=== PATIENT | male | born 1970 | race Caucasian/White ===

== ENCOUNTER 2017-04-12 17:22 | Emergency (ER) | payer OTHER ==
[2017-04-12 17:29] VITALS: BP 143/97; BMI 27.3
--- NOTE | 2017-04-12 18:04 | DR.GENAD ---
HPI - PCP [facility] Phys[facility] - HPI Comment HPI Comment: NOTED YESTERDAY AT PHYSICAL THERAPY. NO FEVER. CONCERN IT MAY BE DVT. NO DRAINAGE. - Complaint/Symptoms Chief Complaint Doctors Comments: SWELLING AND REDNESS LEFT LEG ONE WEEK POST KNEE SURGERY. Chief Complaint:: patient had acl repair on his left knee 7 days ago and physical therarpy saw a red gerri on his leg and though it may be a blood clot. - Nurses notes reviewed Nurses Notes Review: Yes - Source History Provided: Patient - Mode of Arrival Mode of Arrival: Ambulatory - Timing Onset of Chief Complaint: 04/11/17 Came on: Suddenly - Duration Duration: Constant Duration: Days - Severity Severity: Moderate PMH - PMH Past Medical History: No Past Medical History: Hypothyroidism Past Surgical History: Yes Surgical History: Ortho Surgery Past Surgical History Comment: sinus - Family History History of Family Medical Conditions: Yes Family Medical History: Hypertension - Social History Does patient currently use any type of tobacco product: No Have you used tobacco products in the last 12 months: No Type of Tobacco Use: None Does any household member use tobacco: No Alcohol Use: Rarely Do you use any recreational Drugs:: No Lives With: Family Lives Where: Home - infectious screening In the last 2 months have you had wt loss of >10#?: NO Have you had fever, night sweats or hemotysis?: No Have you traveled outside the country in the last 6 months?: No Isolation: Standard ROS - Review of Systems Constitutional: No Symptoms Reported Eyes: No Symptoms Reported ENTM: No Symptoms Reported Respiratoy: No Symptoms Reported Cardiovascular: Edema (LEFT KNEE) Gastrointestinal/Abdominal: No Symptoms Reported Genitourinary: No Symptoms Reported Neurological: No Symptoms Reported Musculoskeletal: Joint Swelling, Muscle Pain, Left, Leg, Knee Integumentary: Change in Color, Other (SWELLING AND REDNESS LEFT LEG.) Hematologic/Lymphatic: No Symptoms Reported Endocrine: No Symptoms Reported All Other Systems: Reviewed and Negative PE - Vital Signs Vitals: Temperature 97.9 F Pulse Rate 65 Respiratory Rate 16 Blood Pressure 143/97 O2 Sat by Pulse Oximetry 100 - General Limitations: No Limitations General Appearance: Alert - Head Head Exam: Normal Inspection - Eyes Eye exam: Normal Appearance - ENT ENT Exam: Normal External Ear Exam External Ear Exam: Normal External Inspection TM/Canal Exam: Bilateral Normal Nose Exam: Normal Nose Exam Mouth Exam: Normal Inspection Throat Exam: Normal Inspection - Neck Neck Exam: Trachea Midline - Chest Chest Inspection: Symmetric Chest Wall Rise - Respiratory Respiratory Exam: Normal Lung Sounds Bilat Respiratory Exam: Bilateral Clear to Auscultation - Cardiovascular Cardiovascular Exam: Regular Rate, Normal Rhythm, Normal Heart Sounds - Abdominal Exam Abdominal Exam: Normal Bowel Sounds, Soft. negative: Tenderness - Extremities Extremities Exam: Tenderness (LEFT KNEE AND LEG WITH TENDERNESS.), Joint Swelling (LEFT KNEE/POST SURGERY.) - Back Back Exam: Normal Inspection - Neurologic Neurological Exam: Alert, Oriented X3 - Psychiatric Psychiatric Exam: Normal Affect, Normal Mood - Skin Skin Exam: Erythema MDM - Differential Diagnosis Differential Diagnosis: CELLULITIS LT LEG, DVT LT LEG, POST KNEE SURGERY. Course - Treatment Treatment: SEE ORDERS. - Education/Counseling Education/Counseling: Patient, Education Educated On: Diagnosis, Needs for Follow Up ROR - Labs Reviewed Laboratory Results Reviewed?: Yes Result Diagrams: 04/12/17 18:15 04/12/17 18:15 Laboratory: WBC 5.2 X10^3/uL (3.6-10.0) 04/12/17 18:15 RBC 4.99 X10^6/uL (4.7-6.0) 04/12/17 18:15 Hgb 14.2 g/dL (13.5-18.0) 04/12/17 18:15 Hct 42.3 % (42.0-54.0) 04/12/17 18:15 MCV 84.8 fL (80.0-100.0) 04/12/17 18:15 MCH 28.5 pg (27.0-34.0) 04/12/17 18:15 MCHC 33.6 g/dL (33.0-35.0) 04/12/17 18:15 RDW 13.6 % (11.6-16.5) 04/12/17 18:15 Plt Count 248 X10^3/uL (150.0-450.0) 04/12/17 18:15 MPV 7.3 fL (7.4-11.0) L 04/12/17 18:15 Neut % 58.0 % (42.0-75.0) 04/12/17 18:15 Lymph % 29.9 % (21.0-51.0) 04/12/17 18:15 Hood % 9.2 % (0.0-13.0) 04/12/17 18:15 Eos % 2.5 % (0.9-2.9) 04/12/17 18:15 Baso % 0.4 % (0.2-1.0) 04/12/17 18:15 Neut # 3.0 x10^3/uL (2.2-4.8) 04/12/17 18:15 Lymph # 1.5 X10^3/uL (1.3-2.9) 04/12/17 18:15 Hood # 0.5 x10^3/uL (0.3-0.8) 04/12/17 18:15 Eos # 0.1 x10^3/uL (0.0-0.2) 04/12/17 18:15 Baso # 0.0 X10^3/uL (0.0-0.1) 04/12/17 18:15 Absolute Nucleated RBC 0.0 /100WBC 04/12/17 18:15 D-Dimer 1720 ng/mL (0-400) H* 04/12/17 18:15 Sodium 140 mmol/L (136-145) 04/12/17 18:15 Corrected Sodium TNP 04/12/17 18:15 Potassium 4.0 mmol/L (3.5-5.1) 04/12/17 18:15 Chloride 102 mmol/L (98-107) 04/12/17 18:15 Carbon Dioxide 30.1 mmol/L (21-32) 04/12/17 18:15 BUN 19 mg/dL (7-18) H 04/12/17 18:15 Creatinine 1.22 mg/dL (0.70-1.30) 04/12/17 18:15 Est GFR (MDRD) Af Amer > 60 (>60) 04/12/17 18:15 Est GFR (MDRD) Non-Af > 60 (>60) 04/12/17 18:15 Glucose 95 mg/dL (65-99) 04/12/17 18:15 Calcium 8.9 mg/dL (8.5-10.1) 04/12/17 18:15 Corrected Calcium TNP 04/12/17 18:15 Total Bilirubin 0.30 mg/dL (0.2-1.0) 04/12/17 18:15 AST 29 Units/L (15-37) 04/12/17 18:15 ALT 54 Units/L (12-78) 04/12/17 18:15 Alkaline Phosphatase 95 Units/L (46-116) 04/12/17 18:15 Total Protein 7.7 g/dL (6.4-8.2) 04/12/17 18:15 Albumin 4.0 g/dL (3.4-5.0) 04/12/17 18:15 Globulin 3.7 g/dL (2.5-4.5) 04/12/17 18:15 Albumin/Globulin Ratio 1.1 Ratio (1.1-2.1) 04/12/17 18:15 - XRAY XRAY Interpreted by: Radiologist XRAY Findings: REPORT DISCUSS WITH PATIENT. - Diagnosis Discharge Problem: Cellulitis - Discharge Plan Disposition: HOME, SELF-CARE Condition: Stable Prescriptions: Clindamycin HCl 300 mg PO Q6H #40 cap - Follow ups/Referrals Follow ups/Referrals: [facility],None [Primary Care Provider] - 3 days - Instructions Instructions: Cellulitis, [id number] Additional Instructions: RETURN TO ED IF WORSE.
[2017-04-12 18:25] LABS: BASOPHILS % (AUTO) 0.4 % (0.2-1.0); EOSINOPHILS # (AUTO) 0.1 x10^3/uL (0.0-0.2); EOSINOPHILS % (AUTO) 2.5 % (0.9-2.9); HEMATOCRIT 42.3 % (42.0-54.0); HEMOGLOBIN 14.2 g/dL (13.5-18.0); LYMPHOCYTES # (AUTO) 1.5 X10^3/uL (1.3-2.9); LYMPHOCYTES % (AUTO) 29.9 % (21.0-51.0); MEAN CORPUSCULAR HEMOGLOBIN 28.5 pg (27.0-34.0); MEAN CORPUSCULAR HGB CONC 33.6 g/dL (33.0-35.0); MEAN CORPUSCULAR VOLUME 84.8 fL (80.0-100.0); MEAN PLATELET VOLUME 7.3 fL (7.4-11.0); MONOCYTES # (AUTO) 0.5 x10^3/uL (0.3-0.8); MONOCYTES % (AUTO) 9.2 % (0.0-13.0); PLATELET COUNT 248 X10^3/uL (150.0-450.0); RED BLOOD COUNT 4.99 X10^6/uL (4.7-6.0); RED CELL DISTRIBUTION WIDTH 13.6 % (11.6-16.5); WHITE BLOOD COUNT 5.2 X10^3/uL (3.6-10.0)
[2017-04-12 18:36] LABS: ALANINE AMINOTRANSFERASE 54 Units/L (12-78); ALKALINE PHOSPHATASE 95 Units/L (46-116); ASPARTATE AMINO TRANSFERASE 29 Units/L (15-37); BLOOD UREA NITROGEN 19 mg/dL (7-18); CALCIUM 8.9 mg/dL (8.5-10.1); CARBON DIOXIDE 30.1 mmol/L (21-32); CHLORIDE 102 mmol/L (98-107); CREATININE 1.22 mg/dL (0.70-1.30); GLUCOSE 95 mg/dL (65-99); SODIUM 140 mmol/L (136-145); TOTAL PROTEIN 7.7 g/dL (6.4-8.2); eGFR BLACK RACES > 60 (>60); eGFR NON BLACK RACES > 60 (>60)
--- NOTE | 2017-04-12 19:09 | VAS ---
Ultrasound left lower extremity venous Doppler Indication: Tenderness and swelling in the left leg. History of recent knee surgery. Technique: Dynamic grayscale and Doppler imaging through the left lower extremity with compression t echniques and spectral analysis. Findings: The left common femoral vein, superficial femoral vein throughout its length and popliteal vein are patent compressible with normal respiratory phasicity. Impression: No left lower extremity deep vein thrombosis. Reported By:
[2017-04-12 19:20] LABS: D DIMER 1720 ng/mL (0-400)
[2017-04-12] MEDS ORDERED: CLEOCIN PO ONE (19:32)
[2017-04-12] MEDS ORDERED: CLEOCIN ONE (19:36)
== END 2017-04-12 19:42 | disposition home or self-care (01) ==
LOC: ER 17:36
DX: L03.116 Cellulitis of left lower limb (principal)
CPT/HCPCS: 36415; 80053; 85025; 85378; 93971; 99283